=== PATIENT | female | born 1990 | race Caucasian/White ===

== ENCOUNTER 2018-10-31 08:00 | Outpatient (CLI) | payer MEDICAID, OTHER ==
[2018-10-31 19:59] LABS: ALBUMIN 4.3 g/dL (3.2-5.5); ALBUMIN/GLOBULIN RATIO 1.7 (1.0-2.2); ALKALINE PHOSPHATASE 71 IU/L (42-121); ALT ALANINE AMINOTRANSFERASE 11 IU/L (10-60); AST ASPARTATE AMINOTRANSFERASE 17 IU/L (10-42); BILIRUBIN,TOTAL 0.8 mg/dL (0.2-1.0); BUN - BLOOD UREA NITROGEN 11 mg/dL (6-20); CARBON DIOXIDE - CO2 27 mmol/L (21-32); CHLORIDE 105 mmol/L (101-111); CHOL/HDL RATIO 2.4 (<4.4); CHOLESTEROL 181 mg/dL; CREATININE 0.7 mg/dL (0.4-1.0); GFR - MDRD 99 (>89); GLUCOSE 82 mg/dL (70-100); HDL CHOLESTEROL 74 mg/dL; SODIUM 137 mmol/L (135-145); TOTAL PROTEIN 6.9 g/dL (6.7-8.2)
[2018-10-31 20:21] LABS: PLATELET ESTIMATE, MANUAL NORMAL (130-450,000) (NORMAL); PLATELET MORPHOLOGY 1+ GIANT PLATELETS (NORMAL); RBC MORPHOLOGY (MULTIPLE) NORMAL APPEARANCE (NORMAL)
[2018-10-31 20:29] LABS: BASOPHILS % (AUTO) 0.7 %; EOSINOPHILS # (AUTO) 0.1 10^3/uL (0.0-0.7); EOSINOPHILS % (AUTO) 1.7 %; HGB - HEMOGLOBIN 12.5 g/dL (12.0-16.0); MEAN CORPUSCULAR HEMOGLOBIN 31.3 pg (27.0-31.0); MEAN CORPUSCULAR HGB CONC 32.9 g/dL (32.0-36.0); MEAN PLATELET VOLUME 11.2 fL (7.9-10.8); MONOCYTES # (AUTO) 0.3 10^3/uL (0.0-1.0); MONOCYTES % (AUTO) 8.8 %; NEUTROPHILS % (AUTO) 58.8 %; PLT - PLATELET COUNT 154 10^3/uL (130-450); RED BLOOD COUNT 3.99 10^6/uL (4.20-5.40); WHITE BLOOD COUNT 3.3 x10^3/uL (4.8-10.8)
[2018-10-31 20:37] LABS: LDL CHOLESTEROL,CALCULATED 98 mg/dL; LDL/HDL RATIO 1.3 (<4.4); VLDL CHOLESTEROL 9 mg/dL
== END 2018-10-31 23:59 ==
LOC: LAB.N 08:00
PROVIDERS: ATTEND Nurse Practitioner Gerontology
DX: Z79.899 Other long term (current) drug therapy (principal)
CPT/HCPCS: 36415; 80053; 80061; 83721; 84443; 85025

== ENCOUNTER 2018-11-22 14:07 | Outpatient (CLI) | payer OTHER | END 2018-11-22 23:59 | disposition home or self-care (01) | LOC: LAB.N 14:07 | PROVIDERS: ATTEND Nurse Practitioner Gerontology | DX: D64.9 Anemia, unspecified (principal) | CPT/HCPCS: 36415; 82607 ==

== ENCOUNTER 2019-02-21 08:00 | Outpatient (CLI) | payer OTHER ==
[2019-02-21 20:29] LABS: RHEUMATOID FACTOR NEGATIVE (Negative)
[2019-02-24 14:42] LABS: ANA SCREEN NEGATIVE (NEGATIVE)
== END 2019-02-21 23:59 | disposition home or self-care (01) ==
LOC: LAB.N 08:00
PROVIDERS: ATTEND Nurse Practitioner Gerontology
DX: M25.50 Pain in unspecified joint (principal); Z83.2 Family history of diseases of the blood and blood-forming organs and certain disorders involving the immune mechanism; D64.9 Anemia, unspecified
CPT/HCPCS: 36415; 85651; 86038; 86140; 86430

== ENCOUNTER 2019-09-25 15:01 | Outpatient (CLI) | payer OTHER ==
--- NOTE | 2019-09-27 16:49 | Ultrasound Report ---
Reason: LUMP IN RT BREAST LOWER OUTER QUADRANT Procedure Date: 09/25/2019 Accession Number: [id number] / [id number] Procedure: US - Breast Unilateral Limited CPT Code: Final Report FULL RESULT: EXAM: Breast Unilateral Limited DATE: 09/25/2019 4:16 PM CLINICAL HISTORY: The patient is a 29-year-old female presenting with a palpable lump. No known family history breast cancer. TECHNIQUE: A high-frequency transducer was utilized to evaluate the area of palpable concern. Claim Specialist static images obtained. Doppler utilized. COMPARISON: None FINDINGS: There is an oval avascular complicated cyst (versus solid mass) at the site of palpable concern in the superficial 9:00 position 6 cm from the nipple. There is no regional skin thickening or hyperemia. The surrounding glandular tissue is unremarkable. No additional masses or architectural distortion. Recommend short interval ultrasound follow-up to confirm stability (if mammographic views are negative/benign). IMPRESSION: Incomplete exam. BI-RADS Category 0. RECOMMENDATION: Mammographic views pending at this time. Note: Benign imaging should not dissuade further evaluation of any suspicious changes.
== END 2019-09-25 15:02 | disposition home or self-care (01) ==
LOC: DI 15:01
PROVIDERS: ATTEND Nurse Practitioner Obstetrics & Gynecology
DX: N63.13 Unspecified lump in the right breast, lower outer quadrant (principal)
CPT/HCPCS: 76642

== ENCOUNTER 2019-10-03 09:58 | Outpatient (CLI) | payer OTHER ==
--- NOTE | 2019-10-03 10:47 | Mammography Report ---
Reason: BREAST LUMP, RT LOWER OUTER QUADRANT Procedure Date: 10/03/2019 Accession Number: [id number] / [id number] Procedure: ANDREA - Diagnostic Dig Bilat CPT Code: Final Report FULL RESULT: EXAM: Diagnostic Dig Bilat DATE: 10/03/2019 10:36 AM CLINICAL HISTORY: Diagnostic examination. Palpable lump right lower outer breast. TECHNIQUE: (B) - Bilateral CC and MLO views were obtained. COMPARISON: Ultrasound of the breast 09/27/2019. PARENCHYMAL PATTERN: (VD) - The breast(s) demonstrate(s) extremely dense parenchyma, limiting the sensitivity of mammography. FINDINGS: No definite mass is identified in the area marked as palpable. There are no suspicious masses, calcifications, or areas of distortion. Based on sonographic findings 09/27/2019, the below recommendation is made. IMPRESSION: Probably Benign. BI-RADS category 3. RECOMMENDATION: (6MOS) - Recommend 6 month follow-up exam. 6 month follow-up ultrasound examination based on sonographic findings 09/27/2019. Right breast. BI-RADS CATEGORY: (3) - Probably Benign. STANDARD QUALIFYING STATEMENTS: 1. This examination was not reviewed with the aid of Computer-Aided Detection (CAD). 2. A negative or benign imaging report should not preclude biopsy if clinically suspicious findings are present. 3. Dense breasts may obscure an underlying neoplasm. 4. This examination was reviewed with the aid of 3D breast imaging (tomosynthesis).
== END 2019-10-03 09:59 | disposition home or self-care (01) ==
LOC: DI 09:58
PROVIDERS: ATTEND Nurse Practitioner Obstetrics & Gynecology
DX: N63.13 Unspecified lump in the right breast, lower outer quadrant (principal)
CPT/HCPCS: 77066

== ENCOUNTER 2019-10-10 16:18 | Outpatient (CLI) | payer OTHER | END 2019-10-10 23:59 | disposition home or self-care (01) | LOC: LAB.R 16:18 | PROVIDERS: ATTEND Nurse Practitioner Gerontology | DX: R31.9 Hematuria, unspecified (principal) | CPT/HCPCS: 87086 ==

== ENCOUNTER 2020-09-05 10:57 | Outpatient (CLI) | payer OTHER ==
--- NOTE | 2020-09-06 11:45 | Mammography Report ---
UNILATERAL RIGHT DIGITAL DIAGNOSTIC MAMMOGRAM 3D/2D: 09/05/2020 CLINICAL: 6 month follow-up on possible right breast mass. Comparison is made to exams dated: 10/03/2019 mammogram and 09/25/2019 ultrasound - [facility]. The tissue of right breast is extremely dense, which lowers the sensitivity of mammogra phy. There is no change in a 0.6 cm oval mass in the right breast at 9 o'clock middle depth 6 cm from the nipple. No other significant masses or calcifications are seen in the breast. IMPRESSION: PROBABLY BENIGN The stable 0.6 cm oval mass in the right breast most likely is a fibroadenoma. This was better seen p reviously via ultrasound, and a follow-up ultrasound is therefore recommended (and was scheduled to i mmediately follow this exam). This exam was interpreted at Station ID: [id number]. NOTE: For mammograms, a report in lay terms will be sent to the patient. Approximately 15% of breast malignancies will not be visualized mammographically. In the management of a palpable breast mass, a negative mammogram must not discourage biopsy of a clinically suspicious lesion. Electronically Signed By: Denilson Hines M.D. jr/:09/05/2020 11:33:07 ACR BI-RADS Category 3: Probably benign 3343F PARENCHYMAL PATTERN: (VD) - The breast(s) demonstrate(s) extremely dense parenchyma, limiting the sen sitivity of mammography. BI-RADS CATEGORY: (3) - 3 Ultrasound [id number] Immediate follow-up LATERALITY: (B)
--- NOTE | 2020-09-07 07:09 | Ultrasound Report ---
LIMITED ULTRASOUND OF RIGHT BREAST: 09/05/2020 CLINICAL: Palpable right breast lump FOLLOW-UP. Comparison is made to exams dated: 09/05/2020 mammogram, 10/03/2019 mammogram, and 09/25/2019 [facility]. Ultrasound of the right breast 9 o'clock region was performed. There is a benign 0.6 cm oval mass in the right breast at 10 o'clock middle depth 6 cm from the nippl e. This oval mass is hypoechoic with no posterior acoustic shadowing or enhancement. This abnormali ty is decreased in size. Color flow imaging demonstrates that there is no vascularity present. IMPRESSION: BENIGN There is no sonographic evidence of malignancy. The 0.6 cm oval mass in the right breast is benign. Return to annual mammogram screening schedule is recommended. This exam was interpreted at Station ID: [id number]. Electronically Signed By: Denilson Hines M.D., jr/cassandra:09/05/2020 13:36:48 Ultrasound BI-RADS: 2 Benign BI-RADS CATEGORY: (2) - 2 RECOMMENDATION: (ANNUAL) - Recommend routine annual screening mammography. [id number] return to screening LATERALITY: (B)
== END 2020-09-05 10:58 | disposition home or self-care (01) ==
LOC: DI 10:57
PROVIDERS: ATTEND Nurse Practitioner Obstetrics & Gynecology
DX: N63.15 Unspecified lump in the right breast, overlapping quadrants (principal)
CPT/HCPCS: 76642

== ENCOUNTER 2020-11-21 14:33 | Outpatient (CLI) | payer OTHER ==
--- NOTE | 2020-11-21 17:31 | XRAY Report ---
PROCEDURE: Cervical Spine 2 View INDICATIONS: NECK PAIN, RADICULOPATHY AFFECTING THE ARM TECHNIQUE: 2 view(s) of the cervical spine were acquired. COMPARISON: X-ray thoracic spine 11/21/2020 FINDINGS: Bones: No fractures or dislocations to the C7-T1 level. The lateral masses of C1 appear intact on t he odontoid view. No suspicious bony lesions. Minimal appearance of cervical straightening. Soft tissues: No prevertebral soft tissue swelling. IMPRESSION: Minimal cervical straightening. Reviewed by: Georgina Woodard MD on 11/21/2020 5:30 PM [facility] Approved by: Georgina Woodard MD on 11/21/2020 5:30 PM [facility] Station ID: [id number]
--- NOTE | 2020-11-21 17:32 | XRAY Report ---
PROCEDURE: Thoracic Spine 2 View INDICATIONS: NECK PAIN, RADICULOPATHY AFFECTING THE ARM TECHNIQUE: 3 views of the thoracic spine were acquired. COMPARISON: X-ray cervical spine 11/21/2020 FINDINGS: Bones: No fractures or dislocations. No suspicious bony lesions. 12 pairs of ribs are noted, and a ppear intact where visualized. Soft tissues: No paravertebral stripe thickening. IMPRESSION: No acute osseous abnormality. Reviewed by: Georgina Woodard MD on 11/21/2020 5:31 PM [facility] Approved by: Georgina Woodard MD on 11/21/2020 5:31 PM [facility] Station ID: [id number]
== END 2020-11-21 14:34 | disposition home or self-care (01) ==
LOC: DI.N 14:33
PROVIDERS: ATTEND Nurse Practitioner
DX: M54.2 Cervicalgia (principal); M54.12 Radiculopathy, cervical region; M62.830 Muscle spasm of back

== ENCOUNTER 2021-12-15 13:41 | Outpatient (CLI) | payer OTHER ==
--- NOTE | 2021-12-15 15:15 | XRAY Report ---
PROCEDURE: Shoulder 3 View LT INDICATIONS: LEFT SHOULDER PAIN TECHNIQUE: 3 views of the shoulder were acquired. COMPARISON: None. FINDINGS: BONES: No acute, displaced fracture. The joint spaces are maintained. SOFT TISSUES: No focal abnormality or appreciable pneumothorax. IMPRESSION: 1.No acute osseous abnormality. Reviewed by: Kurtis Frazier MD on 12/15/2021 3:13 PM [facility] Approved by: Kurtis Frazier MD on 12/15/2021 3:13 PM [facility] Station ID: [id number]
== END 2021-12-15 13:42 | disposition home or self-care (01) ==
LOC: DI.N 13:41
PROVIDERS: ATTEND Nurse Practitioner
DX: M25.512 Pain in left shoulder (principal)

== ENCOUNTER 2023-11-08 09:05 | Outpatient (CLI) | payer OTHER ==
--- NOTE | 2023-11-08 12:17 | Ultrasound Report ---
PROCEDURE: Abdomen Complete INDICATIONS: RUQ ABD PAIN TECHNIQUE: Real-time scanning was performed of the abdominal and retroperitoneal organs, with image documentatio n. COMPARISON: None. FINDINGS: Liver: Liver is normal in size and homogeneous in echotexture. Gallbladder: Unremarkable. Biliary ducts: Intrahepatic bile ducts are non-dilated. Extrahepatic bile duct caliber measures 3 m m. Normal is 6-7 mm or less in diameter, or 10 mm or less post-cholecystectomy. Pancreas: Visualized portions of the pancreas are sonographically normal. Spleen: Spleen is normal in size and homogeneous in echotexture. Kidneys: Kidneys are normal in size and echotexture. Right kidney measures 8.7 cm long; left kidney measures 9.4 cm long. No hydronephrosis or nephrolithiasis. No solid masses. No complex renal cyst ic lesions which require follow-up. Aorta: Visualized aorta is normal in caliber at less than 3 cm. Iliacs: Proximal common iliac arteries are normal in caliber at less than 2.5 cm. IVC: Intrahepatic inferior vena cava is patent. Miscellaneous: No free abdominal fluid. IMPRESSION: Unremarkable abdominal ultrasound. No cause for patient's pain is identified. Reviewed by: Hermelindo Vincent MD on 11/08/2023 12:15 PM PST Approved by: Hermelindo Vincent MD on 11/08/2023 12:15 PM PST Station ID: [id number]
== END 2023-11-08 09:06 | disposition home or self-care (01) ==
LOC: DI 09:05
PROVIDERS: ATTEND Nurse Practitioner
DX: R10.11 Right upper quadrant pain (principal)